=== PATIENT | male | born 1995 | race African-American/Black ===

== ENCOUNTER 2022-12-12 03:39 | Emergency (ER) | payer OTHER ==
[~2022-12-12] VITALS: Ht 182.9 cm; Wt 84.1 kg
[2022-12-12 03:40] VITALS: BP 127/67
[2022-12-12 03:54] LABS: COVID AG,FIA SOURCE NASAL SWAB
[2022-12-12] MEDS ORDERED: BENZ1LOZ77 PO (05:08)
[2022-12-12] MEDS ORDERED: IBUP-1492 PO (05:08)
[2022-12-12] MEDS ORDERED: AMOX500C2 PO (05:08)
== END 2022-12-12 05:28 | disposition home or self-care (01) ==
LOC: EMS 03:40
DX: J02.0 Streptococcal pharyngitis (principal); Z20.822 Contact with and (suspected) exposure to COVID-19
CPT/HCPCS: 87430; 99283